=== PATIENT | female | born 1995 | race Caucasian/White ===

== ENCOUNTER 2019-10-03 03:10 | Emergency (ER) | payer MEDICAID ==
[~2019-10-03] VITALS: Ht 157.5 cm; Wt 77.1 kg
[2019-10-03] MEDS ORDERED: HYDROcodone-ACET 5/325MG TAB PO ONE (06:45)
[2019-10-03] MEDS ORDERED: ONDANSETRON ODT 4 MG TAB PO ONE (06:45)
[2019-10-03 07:10] VITALS: BP 114/71
== END 2019-10-03 07:12 | disposition home or self-care (01) ==
LOC: ER 03:14
DX: S02.2XXA Fracture of nasal bones, initial encounter for closed fracture (principal); S00.81XA Abrasion of other part of head, initial encounter; F17.210 Nicotine dependence, cigarettes, uncomplicated; Y04.2XXA Assault by strike against or bumped into by another person, initial encounter; Y93.89 Activity, other specified; Y92.89 Other specified places as the place of occurrence of the external cause; Y99.8 Other external cause status
CPT/HCPCS: 70450; 70486; 72125; 99284; Q0162